=== PATIENT | female | born 1990 | race Two or more races ===

== ENCOUNTER 2016-12-23 15:26 | Emergency (ER) | payer MEDICAID, OTHER ==
[~2016-12-23] VITALS: Ht 152.4 cm; Wt 36.1 kg
[2016-12-23 15:34] VITALS: BP 99/63
[2016-12-23] MEDS ORDERED: ALBUTEROL SULFATE 2.5 MG/3 ML NPPB ONE (16:00)
[2016-12-23] MEDS ORDERED: ALBUTEROL SULFATE 2.5 MG/3 ML ONE (16:17)
== END 2016-12-23 16:57 | disposition home or self-care (01) ==
LOC: ED 16:20
DX: J98.01 Acute bronchospasm (principal); F17.200 Nicotine dependence, unspecified, uncomplicated
CPT/HCPCS: 71020; 94640; 99284; J7512; J7613

== ENCOUNTER 2017-02-11 10:50 | Emergency (ER) | payer SELFPAY ==
[~2017-02-11] VITALS: Ht 152.4 cm; Wt 34.5 kg
[2017-02-11 12:16] LABS: BLOOD UREA NITROGEN 12 mg/dL (7-18); HEMATOCRIT 45.4 % (34.6-47.8); HEMOGLOBIN 15.2 g/dL (11.7-16.4); WHITE BLOOD COUNT 5.4 x10^3/uL (3.4-10)
[2017-02-11 12:49] VITALS: BP 100/67
== END 2017-02-11 13:26 | disposition home or self-care (01) ==
LOC: ED 11:12
DX: N93.8 Other specified abnormal uterine and vaginal bleeding (principal); R30.0 Dysuria; F17.210 Nicotine dependence, cigarettes, uncomplicated; J45.909 Unspecified asthma, uncomplicated; M06.9 Rheumatoid arthritis, unspecified
CPT/HCPCS: 36415; 80048; 81001; 82040; 84703; 85025; 87086; 99284

== ENCOUNTER 2018-06-22 21:06 | Emergency (ER) | payer MEDICAID ==
[~2018-06-22] VITALS: Ht 152.4 cm; Wt 35.8 kg
[2018-06-22 21:10] VITALS: BP 98/62
--- NOTE | 2018-06-22 21:21 | NUR ---
pa at pt's bedside for eval
== END 2018-06-22 22:00 | disposition home or self-care (01) ==
LOC: ED 21:53
DX: T19.2XXA Foreign body in vulva and vagina, initial encounter (principal); X58.XXXA Exposure to other specified factors, initial encounter; Y93.89 Activity, other specified; Y92.89 Other specified places as the place of occurrence of the external cause; Y99.8 Other external cause status
CPT/HCPCS: 99284

== ENCOUNTER 2019-02-16 10:34 | Emergency (ER) | payer SELFPAY ==
[~2019-02-16] VITALS: Ht 152.4 cm; Wt 37.6 kg
--- NOTE | 2019-02-16 11:25 | NUR ---
URINE SAMPLE WALKED TO LAB
[2019-02-16] MEDS ORDERED: SODIUM CHLORIDE FLUSH 10ML SYR IVF ONE (11:30)
[2019-02-16 11:37] LABS: MICROSCOPIC AUTO
[2019-02-16 11:40] LABS: CULTURE INDICATED? NO
[2019-02-16 11:43] LABS: BASOPHILS # (AUTO) 0.03 x10^3/uL (0-0.1); BASOPHILS % (AUTO) 0 % (0-1); EOSINOPHILS # (AUTO) 0.11 x10^3/uL (0-0.4); EOSINOPHILS % (AUTO) 2 % (1-7); LYMPHOCYTES % (AUTO) 14 % (22-44); MD NO; MEAN CORPUSCULAR HEMOGLOBIN 30.9 pg (27.0-34.8); MEAN CORPUSCULAR HGB CONC 32.7 g/dL (32.4-35.8); MEAN CORPUSCULAR VOLUME 94.7 fL (80-100); MEAN PLATELET VOLUME 8.8 fL (7.4-10.4); MONOCYTES # (AUTO) 0.47 x10^3/uL (0.2-0.8); MONOCYTES % (AUTO) 6 % (2-9); NEUTROPHILS # (AUTO) 6.06 x10^3/uL (1.8-6.8); NEUTROPHILS % (AUTO) 78 % (42-75); PLATELET COUNT 262 x10^3/uL (130-400); RED BLOOD COUNT 4.67 x10^6/uL (3.82-5.3); RED CELL DISTRIBUTION WIDTH 12.7 % (9.6-15.2)
[2019-02-16 11:51] LABS: ALANINE AMINOTRANSFERASE 28 U/L (12-78); ALBUMIN 3.9 g/dL (3.4-5.0); ANION GAP 5 mmol/L (5-15); CHLORIDE 108 mmol/L (98-107); CREATININE 0.76 mg/dL (0.55-1.02)
[2019-02-16 11:55] LABS: ALKALINE PHOSPHATASE 70 U/L (45-117); BILIRUBIN,TOTAL 0.8 mg/dL (0.2-1.0); TOTAL PROTEIN 7.3 g/dL (6.4-8.2)
[2019-02-16 12:31] VITALS: BP 101/66
--- NOTE | 2019-02-16 12:32 | NUR ---
PT C/O SUDDEN VAGINAL BLEEDING. PT GIVEN PADS. PT STATES "ITS NOT MY PERIOD, IT FEELS DIFFERENT". MD NOTIFIED.
--- NOTE | 2019-02-16 12:55 | NUR ---
PT RETURNED FROM CT. SWITCHED TO PELVIC GURNEY.
== END 2019-02-16 13:42 | disposition home or self-care (01) ==
LOC: ED 12:31
DX: N93.8 Other specified abnormal uterine and vaginal bleeding (principal)
CPT/HCPCS: 36415; 76830; 80053; 81001; 83690; 84703; 85025; 99284